=== PATIENT | male | born 1945 ===

== ENCOUNTER 2018-07-03 13:25 | Emergency (ER) | payer MEDICARE, BC ==
[~2018-07-03 13:25] MED LIST: ASPI81TA94 PO; ATOR10TA65 PO; CHOL200074 PO; DOCU-416 PO; ENO100I SC; FISH OIL1 CAP PO; FOL1 PO; GARL100T2 PO; GLUC1TAB13 PO; MULT-767 PO; NO ROUTINE MEDS; OXYC-373 PO; UBID100C33 PO; VITA-324 PO; WARF4TAB47 PO
--- NOTE | 2018-07-03 13:38 | ER Report ---
History and Physical Time Seen By MD: 13:34 HPI/ROS CHIEF COMPLAINT: Right forearm injury HISTORY OF PRESENT ILLNESS: This is a 72-year-old male presents to the emergency room for a right forearm injury. Patient states that today he was hiking, slipped while he was descending and landed on a rock, injuring his right lateral forearm. Still has movement, no deformities however there is a fair amount of pain. CMS intact distal to the injury. No fevers or chills. Denies hitting his head, no loss of consciousness. REVIEW OF SYSTEMS: Respiratory: No cough, no dyspnea. Cardiovascular: No chest pain, no palpitations. Gastrointestinal: No vomiting, no abdominal pain. Musculoskeletal: As above. Allergies: Coded Allergies: No Known Drug Allergies (Verified , 07/03/18) Home Meds Reported Medications Ford-3 Fatty Acids/Fish Oil (OMEGA 3 FISH OIL SOFTGEL) 1 Each Capsule.dr, 1 EACH PO QDAY 07/03/18 [Magnesium] No Conflict Check, 500 MG PO QDAY 07/03/18 Aspirin (ASPIRIN) 81 Mg Tab.chew, 81 MG PO QDAY, TAB.CHEW 09/02/15 Atorvastatin Calcium (ATORVASTATIN CALCIUM) 10 Mg Tablet, 1 TAB PO QDAY, TAB 09/02/15 Glucosamine Hcl/Chondr Parkinson A Na (OSTEO BI-FLEX CAPLET) 1 Each Tablet, 1 EACH PO DAILY 09/02/15 Cholecalciferol (Vitamin D3) (VITAMIN D-3) 2,000 Unit Capsule, 2000 UNIT PO QDAY, CAPSULE 09/02/15 Folic Acid/Mv,Fe,Other Min (Centrum Complete Multivit Tab) 1 Each Tablet, 1 EACH PO DAILY, 0 Refills 05/21/11 Past Medical/Surgical History The patient has a past medical and surgical history of transient global amnesia, DVT, hypercholesterolemia, pneumonia, ankle hernia, shoulder and hip surgery, bilateral Lasik. Hx Smoking: No Smoking Status: Never Smoker Hx Substance Use Disorder: No Hx Alcohol Use: Yes Constitutional Vital Sign - Last 24 Hours 07/03/18 07/03/18 07/03/18 07/03/18 13:34 13:37 13:55 14:00 Temp 98.1 Pulse 52 52 Resp 12 B/P (MAP) 140/90 (107) 140/90 111/87 (95) Pulse Ox 91 92 O2 Delivery Room Air Room Air 07/03/18 07/03/18 14:25 14:30 Pulse 54 B/P (MAP) 133/80 (97) Pulse Ox 93 O2 Delivery Room Air Physical Exam General Appearance: The patient is alert, has no immediate need for airway protection and no current signs of toxicity. Eyes: Pupils equal and round no injection. Respiratory: Chest is non tender, lungs are clear to auscultation. Cardiac: regular rate and rhythm. Gastrointestinal: Abdomen is soft and non tender, no masses, bowel sounds normal. Musculoskeletal: Neck: Neck is supple and non tender. Extremities have full range of motion and are non tender. Skin: No rashes or lesions. DIFFERENTIAL DIAGNOSIS: After history and physical exam differential diagnosis was considered for contusion, abrasion, fracture. Medical Decision Making EKG/Imaging Imaging Location: [facility] - [place] Patient: Kameron Lazar : 1945 Visit/Account:[id number] Date of Sevice: 07/03/2018 FOREARM RIGHT History: Right forearm pain. Status post fall. Comparison study: None. Findings: There is no fracture or dislocation involving the right forearm. The wrist and elbow so far as visualized are unremarkable. There is enthesopathic change at the site of attachment of the triceps tendon upon the olecranon process. IMPRESSION: 1. No findings of fracture involving the right forearm. 2. Enthesopathic changes at the site of attachment of the triceps tendon as described above. Report Dictated By: Carlo Solano MD at 07/03/2018 2:29 PM Report E-Signed By: Carlo Solano MD at 07/03/2018 2:30 PM [id number] ED Course/Re-evaluation ED Course The patient was admitted to room. A history and physical were obtained. Differential diagnoses were considered. An x-ray of the right forearm was negative for any acute bony abnormalities. I did tell the patient this is likely a contusion and would anticipate some discomfort for the next couple of days, take ibuprofen or Tylenol as needed for pain. If no improvement in the next week follow-up with [facility] for reevaluation. Return to the ER for any other concerns or worsening symptoms. Patient expressed understanding was discharged home. Decision to Disposition Date: Jul 03, 2018 Decision to Disposition Time: 14:42 Depart Departure Latest Vital Signs Vital Signs Date Time Temp Pulse Resp B/P (MAP) Pulse Ox O2 Delivery O2 Flow Rate FiO2 07/03/18 14:30 133/80 (97) 07/03/18 14:25 54 93 Room Air 07/03/18 13:37 98.1 12 Impression: Primary Impression: Contusion of right forearm Condition: Improved Disposition: HOME OR SELF-CARE Referrals: DONNIE GILLETTE MD (PCP) [facility] Patient Instructions: Contusion in Adults (ED) Additional Instructions: No fracture identified on the x-rays today. The pain which are experiencing is likely a bruise to the forearm. Take ibuprofen or Tylenol as needed for pain. Use the Mehdi wrap for support. If no improvement within the next week please follow up with [facility] for reevaluation. Drink plenty of water. Get plenty of rest. Return to the emergency department for any other concerns or worsening symptoms. Problem Qualifiers Primary Impression: Contusion of right forearm Encounter type: initial encounter Qualified Codes: S50.11XA - Contusion of right forearm, initial encounter ЕКАТЕРИНА ACOSTAP-BC Jul 03, 2018 13:38
[2018-07-03] MEDS ORDERED: OMEG-36 PO (13:40)
[2018-07-03] MEDS ORDERED: MAGNESIUM PO (13:40)
[2018-07-03 14:30] VITALS: BP 133/80
--- NOTE | 2018-07-03 14:34 | RADIOLOGY IMAGING REPORT ---
FACILITY: [facility] - [place] PATIENT NAME: Kameron Lazar : 1945 MR: [id number] V: [id number] EXAM DATE: ORDERING PHYSICIAN: ЕКАТЕРИНА ACOSTA TECHNOLOGIST: Location: [facility] - [place] Patient: Kameron Lazar : 1945 Visit/Account:[id number] Date of Sevice: 07/03/2018 FOREARM RIGHT History: Right forearm pain. Status post fall. Comparison study: None. Findings: There is no fracture or dislocation involving the right forearm. The wrist and elbow so far as visualized are unremarkable. There is enthesopathic change at the site of attachment of the triceps tendon upon the olecranon proc ess. IMPRESSION: 1. No findings of fracture involving the right forearm. 2. Enthesopathic changes at the site of attachment of the triceps tendon as described above. Report Dictated By: Carlo Solano MD at 07/03/2018 2:29 PM Report E-Signed By: Carlo Solano MD at 07/03/2018 2:30 PM WSN:[id number]
== END 2018-07-03 15:00 | disposition home or self-care (01) ==
LOC: ER 13:40
DX: S50.11XA Contusion of right forearm, initial encounter (principal); W01.198A Fall on same level from slipping, tripping and stumbling with subsequent striking against other object, initial encounter; Y93.01 Activity, walking, marching and hiking
CPT/HCPCS: 99283